=== PATIENT | male | born 2000 | race Caucasian/White ===

== ENCOUNTER 2024-02-16 22:52 | Emergency (ER) | payer BC ==
[~2024-02-16] VITALS: Ht 193 cm; Wt 100.0 kg
[2024-02-16 22:58] VITALS: TEMP 98
[2024-02-16 23:38] LABS: BASO % 0.4 % (0.0-2.0); EOS # 0.1 K/mm3 (0.0-0.7); EOS % 1.4 % (0.0-4.0); GRAN # 5.3 K/mm3 (1.4-6.5); HEMATOCRIT 48.4 % (42.0-52.0); HEMOGLOBIN 16.9 g/dl (13.5-18.0); LYMPH # 2.8 K/mm3 (1.2-3.4); LYMPH % 30.5 % (20.0-51.0); MEAN CELL VOLUME 86 fl (80.0-100.0); MEAN CORPUSCULAR HEMOGLOBIN 30 pg (27-31); MEAN CORPUSCULAR HGB CONC 35 g/dl (33.0-37.0); MEAN PLATELET VOLUME 9.9 fl (7.4-10.4); MONO # 0.8 K/mm3 (0.1-0.6); MONO % 8.9 % (1.7-9.3); PLATELET COUNT 245 K/mm3 (130-400); RED BLOOD COUNT 5.61 M/mm3 (4.20-5.60); REDCELL DISTRIBUTION WIDTH-CV 12.1 % (11.5-14.5)
[2024-02-16] MEDS ORDERED: Ketorolac 15 MG/ML VIAL IV ONE (23:45)
[2024-02-16] MEDS ORDERED: NS 1,000 ML IV ONE (23:45)
[2024-02-16] MEDS ORDERED: diphenhydrAMINE 50 MG/ML 1 ML VIAL IV ONE (23:45)
[2024-02-16 23:56] LABS: BILIRUBIN,TOTAL 1.3 mg/dL (0.2-1.2); C-REACTIVE PROTEIN 0.13 mg/dL (0.00-0.50); CALCIUM 8.9 mg/dL (8.4-10.2); CREATININE, serum 0.95 mg/dL (0.72-1.25); TOTAL PROTEIN 7.1 g/dl (6.2-8.1)
[2024-02-17 01:32] VITALS: BP 118/70; PULSE 73
== END 2024-02-17 01:32 | disposition home or self-care (01) ==
LOC: COL.ER 22:52
PROVIDERS: Nurse Practitioner
DX: R51.9 Headache, unspecified (principal)
CPT/HCPCS: J1200; J1885; J2765; J7030